=== PATIENT | female | born 1940 | race African-American/Black ===

== ENCOUNTER 2016-11-05 23:05 | Inpatient (IN) | payer MEDICARE ==
[~2016-11-05] VITALS: Ht 160 cm; Wt 50.8 kg
[~2016-11-05 23:05] MED LIST: AMIT25TA9 PO; CLON0.1T14 PO; LORA2TAB2 PO; PERP4TAB11 PO; TEMA30CA PO; [UNRECOGNIZED DRUG - CODE] PO
[2016-11-05] MEDS ORDERED: SODIUM CHLORIDE 0.9% 1,000 ML IV ONE (23:13)
[2016-11-05] MEDS ORDERED: ASPIRIN 81MG TABLET PO ONE (23:15)
[2016-11-05] MEDS ORDERED: ONDANSETRON HCL 4MG/2ML VIAL IV STA (23:17)
[2016-11-05 23:39] LABS: BASOPHILS % 0.7 % (0.0-2.0); EOSINOPHILS % 5.3 % (0.0-5.0); HEMATOCRIT. 36.1 % (36.0-48.0); HEMOGLOBIN. 12.2 g/dL (12.0-16.0); LYMPHOCYTES % 35.6 % (20.0-50.0); MEAN CORPUSCULAR HEMOGLOBIN 30.9 pg (28.0-32.0); MEAN CORPUSCULAR VOLUME 91.2 fL (81.0-99.0); MEAN PLATELET VOLUME 8.5 fl (7.4-10.4); MONOCYTES % 6.1 % (2.0-8.0); NEUTROPHILS % 52.3 % (40.0-76.0); PLATELET 327 x1000/uL (130-400); RED BLOOD CELL COUNT 3.96 mill/uL (4.2-5.4)
[2016-11-05 23:49] LABS: INR 1.1; PROTHROMBIN TIME 11.5 sec (9.4-11.6)
[2016-11-05 23:57] LABS: CARBON DIOXIDE 25 mEq/L (21-32); CHLORIDE 105 mEq/L (98-107); ETHANOL BLOOD < 10 mg/dL; T4 FREE 1.15 ng/dL (0.76-1.46); TROPONIN I < 0.02 ng/mL (0.00-0.04)
[2016-11-06] MEDS ORDERED: MORPHINE SULFATE 2 MG/ML CPJ (NOT FOR IM USE) IV ONE (00:30)
[2016-11-06] MEDS ORDERED: MORPHINE SULFATE 4 MG/ML CPJ (NOT FOR IM USE) IV SCH (01:47)
[2016-11-06] MEDS ORDERED: ONDANSETRON HCL 4MG/2ML VIAL IV PRN (03:30)
[2016-11-06 08:02] LABS: BASOPHILS % 0.9 % (0.0-2.0); EOSINOPHILS % 1.9 % (0.0-5.0); HEMATOCRIT. 35.9 % (36.0-48.0); HEMOGLOBIN. 12.2 g/dL (12.0-16.0); LYMPHOCYTES % 27.2 % (20.0-50.0); MEAN CORPUSCULAR HEMOGLOBIN 30.8 pg (28.0-32.0); MEAN CORPUSCULAR VOLUME 90.9 fL (81.0-99.0); MEAN PLATELET VOLUME 8.9 fl (7.4-10.4); MONOCYTES % 3.9 % (2.0-8.0); NEUTROPHILS % 66.1 % (40.0-76.0); PLATELET 318 x1000/uL (130-400); RED BLOOD CELL COUNT 3.95 mill/uL (4.2-5.4)
[2016-11-06 08:40] LABS: CHLORIDE 102 mEq/L (98-107)
[2016-11-06 08:55] LABS: AMYLASE 94 IU/L (25-115); CARBON DIOXIDE 24 mEq/L (21-32)
[2016-11-06] MEDS: CLONIDINE 0.1MG TABLET PO SCH ×2 (09:00→20:49)
[2016-11-06] MEDS: DEXT 5%/0.45% NACL KCL 20MEQ/L 1,000 ML IV SCH ×2 (10:01→20:50)
[2016-11-06] MEDS: FAMOTIDINE 20MG/2ML VIAL IV SCH (10:01)
[2016-11-06] MEDS: ENOXAPARIN 40MG/0.4ML SYR SUBCUT SCH (10:02)
[2016-11-06] MEDS: HYDROMORPHONE HCL/PF 2MG/ML CPJ IV PRN (14:44)
[2016-11-06] MEDS ORDERED: SODIUM CHLORIDE 0.9% 10ML VIAL ONE (14:50)
[2016-11-06] MEDS ORDERED: DIATR MEGLU/DIATRIZOATE SOLN 120ML ONE (14:50)
[2016-11-06] MEDS ORDERED: IOHEXOL-300 100 ML BOTTLE ONE (14:50)
[2016-11-07] MEDS: DEXT 5%/0.45% NACL KCL 20MEQ/L 1,000 ML IV SCH ×2 (01:00→04:58)
[2016-11-07 06:54] LABS: BASOPHILS % 0.7 % (0.0-2.0); EOSINOPHILS % 6.2 % (0.0-5.0); HEMATOCRIT. 33.1 % (36.0-48.0); HEMOGLOBIN. 11.2 g/dL (12.0-16.0); LYMPHOCYTES % 37.1 % (20.0-50.0); MEAN CORPUSCULAR HEMOGLOBIN 30.8 pg (28.0-32.0); MEAN PLATELET VOLUME 8.9 fl (7.4-10.4); MONOCYTES % 8.5 % (2.0-8.0); NEUTROPHILS % 47.5 % (40.0-76.0); PLATELET 252 x1000/uL (130-400); RED BLOOD CELL COUNT 3.63 mill/uL (4.2-5.4); RED CELL DISTRIBUTION WIDTH 14.3 % (11.6-14.6)
[2016-11-07 07:37] LABS: CHLORIDE 104 mEq/L (98-107)
[2016-11-07 08:05] LABS: CARBON DIOXIDE 25 mEq/L (21-32)
[2016-11-07] MEDS: FAMOTIDINE 20MG/2ML VIAL IV SCH (09:36)
[2016-11-07] MEDS: HYDROMORPHONE HCL/PF 2MG/ML CPJ IV PRN (09:38)
[2016-11-07] MEDS: ENOXAPARIN 40MG/0.4ML SYR SUBCUT SCH (09:39)
[2016-11-07] MEDS: CLONIDINE 0.1MG TABLET PO SCH (15:42)
[2016-11-07 16:00] VITALS: BP 185/86
== END 2016-11-07 16:30 | disposition home or self-care (01) | DRG 440 ==
LOC: ER 23:15 → 7WST 11-06 02:22 → ENRESERV 11-06 02:46
PROVIDERS: ADMIT Internal Medicine; ATTEND Internal Medicine
DX: K85.90 Acute pancreatitis without necrosis or infection, unspecified (principal); F03.90 Unspecified dementia, unspecified severity, without behavioral disturbance, psychotic disturbance, mood disturbance, and anxiety; E05.90 Thyrotoxicosis, unspecified without thyrotoxic crisis or storm; I10 Essential (primary) hypertension; E03.9 Hypothyroidism, unspecified; R07.9 Chest pain, unspecified; Z79.899 Other long term (current) drug therapy
CPT/HCPCS: 36415; 70450; 71010; 74177; 80048; 80053; 80061; 82150; 83690; 83880; 84439; 84443; 84484; 85025; 85610; 93005; 96361; 96374; 96375; 99285; A4216; G0482; J1170; J1650; J2270; J2405; J3490; J7030; Q9963; Q9967

== ENCOUNTER 2017-02-03 13:17 | Emergency (ER) | payer MEDICARE ==
[~2017-02-03] VITALS: Ht 154.9 cm; Wt 49.0 kg
[2017-02-03 14:54] LABS: INR 1.1; PROTHROMBIN TIME 11.2 sec (9.4-11.6)
[2017-02-03 15:00] LABS: BASOPHILS % 0.5 % (0.0-2.0); EOSINOPHILS % 3.7 % (0.0-5.0); HEMATOCRIT. 27.7 % (36.0-48.0); HEMOGLOBIN. 8.9 g/dL (12.0-16.0); LYMPHOCYTES % 21.8 % (20.0-50.0); MEAN CORPUSCULAR HEMOGLOBIN 26.8 pg (28.0-32.0); MEAN CORPUSCULAR VOLUME 83.1 fL (81.0-99.0); MEAN PLATELET VOLUME 8.3 fl (7.4-10.4); MONOCYTES % 6.3 % (2.0-8.0); NEUTROPHILS % 67.7 % (40.0-76.0); PLATELET 373 x1000/uL (130-400); RED BLOOD CELL COUNT 3.33 mill/uL (4.2-5.4); RED CELL DISTRIBUTION WIDTH 17.6 % (11.6-14.6)
[2017-02-03 15:05] LABS: CARBON DIOXIDE 30 mEq/L (21-32); CHLORIDE 103 mEq/L (98-107); TROPONIN I < 0.02 ng/mL (0.00-0.04)
[2017-02-03] MEDS ORDERED: POTASSIUM CHLORIDE 20MEQ TABLET SR PO ONE (15:30)
[2017-02-03 17:45] VITALS: BP 148/82
[2017-02-03 17:46] LABS: CLARITY URINE CLEAR (CLEAR); COLOR URINE YELLOW (YELLOW); GLUCOSE URINE NEGATIVE (NEGATIVE); KETONES URINE NEGATIVE (NEGATIVE); LEUKOCYTE ESTERASE URINE NEGATIVE (NEGATIVE); NITRITE URINE NEGATIVE (NEGATIVE); OCCULT BLOOD URINE NEGATIVE (NEGATIVE); PH URINE 7.5 (4.5-8.0); PROTEIN URINE NEGATIVE (NEGATIVE); SPECIFIC GRAVITY URINE 1.005 (1.005-1.030); UROBILINOGEN URINE 0.2 E.U./dL (0.2-1.0)
== END 2017-02-03 18:14 | disposition home or self-care (01) ==
LOC: ER 13:49 → CANBEDREQ 18:19
DX: D64.9 Anemia, unspecified (principal); E87.6 Hypokalemia; E05.90 Thyrotoxicosis, unspecified without thyrotoxic crisis or storm; F03.90 Unspecified dementia, unspecified severity, without behavioral disturbance, psychotic disturbance, mood disturbance, and anxiety; I10 Essential (primary) hypertension
CPT/HCPCS: 36415; 71010; 80053; 81003; 83880; 84484; 85025; 85610; 93005; 99285

== ENCOUNTER 2018-02-12 04:47 | Inpatient (IN) | payer MEDICARE ==
[~2018-02-12] VITALS: Ht 154.9 cm; Wt 41.8 kg
[2018-02-12 06:19] LABS: BASOPHILS % 0.3 % (0.0-2.0); EOSINOPHILS % 3.9 % (0.0-5.0); HEMATOCRIT. 34.9 % (36.0-48.0); HEMOGLOBIN. 11.4 g/dL (12.0-16.0); LYMPHOCYTES % 20.3 % (20.0-50.0); MEAN CORPUSCULAR HEMOGLOBIN 29.9 pg (28.0-32.0); MEAN CORPUSCULAR VOLUME 91.5 fL (81.0-99.0); MEAN PLATELET VOLUME 8.5 fl (7.4-10.4); MONOCYTES % 6.4 % (2.0-8.0); NEUTROPHILS % 69.1 % (40.0-76.0); PLATELET 261 x1000/uL (130-400); RED BLOOD CELL COUNT 3.82 mill/uL (4.2-5.4); RED CELL DISTRIBUTION WIDTH 14.6 % (11.6-14.6)
[2018-02-12 06:25] LABS: CHLORIDE 104 mEq/L (98-107)
[2018-02-12] MEDS ORDERED: NITROGLYCERIN 50MG PREMIX 250 ML IV ONE (06:30)
[2018-02-12] MEDS ORDERED: NITROGLYCERIN 0.4MG TABLET SL SL ONE ×2 (06:30→08:30)
[2018-02-12] MEDS ORDERED: FUROSEMIDE 40MG/4ML VIAL IVP ONE (06:30)
[2018-02-12] MEDS ORDERED: NITROGLYCERIN OINT 1GM/INCH UDPKT TD ONE (06:45)
[2018-02-12] MEDS ORDERED: IOHEXOL-350 100 ML BOTTLE ONE (08:30)
[2018-02-12] MEDS ORDERED: ACETAMINOPHEN 500MG TABLET PO ONE (10:00)
[2018-02-12] MEDS ORDERED: LORAZEPAM 2MG/ML CPJ IV ONE ×2 (10:30→11:15)
[2018-02-12] MEDS ORDERED: CLONIDINE 0.1MG TABLET PO NR (20:30)
[2018-02-12] MEDS ORDERED: CLONIDINE 0.2MG TABLET PO PRN (22:15)
[2018-02-12] MEDS ORDERED: ONDANSETRON HCL 4MG/2ML INJ IV PRN (22:15)
[2018-02-12] MEDS ORDERED: ACETAMINOPHEN 325MG TABLET PO PRN (22:15)
[2018-02-12] MEDS ORDERED: DOCUSATE SODIUM 100MG CAPSULE PO PRN (22:15)
[2018-02-12] MEDS: HYDROCODONE/ACETAMINOPHEN 5/325MG TABLET PO PRN (22:29)
[2018-02-13 05:24] LABS: BASOPHILS % 0.8 % (0.0-2.0); EOSINOPHILS % 4.6 % (0.0-5.0); HEMATOCRIT. 38.3 % (36.0-48.0); HEMOGLOBIN. 12.9 g/dL (12.0-16.0); LYMPHOCYTES % 35.8 % (20.0-50.0); MEAN CORPUSCULAR HEMOGLOBIN 30.5 pg (28.0-32.0); MEAN PLATELET VOLUME 8.6 fl (7.4-10.4); MONOCYTES % 7.6 % (2.0-8.0); NEUTROPHILS % 51.2 % (40.0-76.0); PLATELET 328 x1000/uL (130-400); RED BLOOD CELL COUNT 4.21 mill/uL (4.2-5.4); RED CELL DISTRIBUTION WIDTH 14.8 % (11.6-14.6)
[2018-02-13 05:34] LABS: CHLORIDE 101 mEq/L (98-107)
[2018-02-13 05:45] LABS: CREATINE KINASE 73 IU/L (26-192); LDL CHOLESTEROL 89 mg/dL (5-100); T4 FREE 1.76 ng/dL (0.76-1.46)
[2018-02-13 05:46] LABS: HDL CHOLESTEROL 74 mg/dL (40-59)
[2018-02-13] MEDS: HYDROCODONE/ACETAMINOPHEN 5/325MG TABLET PO PRN ×4 (05:55→23:33)
[2018-02-13 11:00] VITALS: BP 137/91
[2018-02-13] MEDS: ASPIRIN 81MG EC TABLET PO SCH (11:21)
[2018-02-13] MEDS: AMLODIPINE 10MG TABLET PO SCH (11:22)
[2018-02-13] MEDS: PANTOPRAZOLE 40MG DR TABLET PO SCH (11:23)
[2018-02-13] MEDS ORDERED: INFLUENZA VACCINE IM ONE (16:00)
[2018-02-13] MEDS ORDERED: PNEUMOCOCCAL VACCINE IM ONE (16:00)
[2018-02-13] MEDS ORDERED: NITROGLYCERIN 0.4MG TABLET SL SL PRN (17:07)
[2018-02-13] MEDS: METOPROLOL TARTRATE 25MG TABLET PO SCH (18:15)
[2018-02-13 20:00] VITALS: BP 148/82
[2018-02-14] MEDS ORDERED: LORAZEPAM 1MG TABLET PO PRN
[2018-02-14 00:20] VITALS: BP 145/85
[2018-02-14] MEDS: HYDROCODONE/ACETAMINOPHEN 5/325MG TABLET PO PRN ×2 (04:03→10:03)
[2018-02-14 04:04] VITALS: BP 136/80
[2018-02-14] MEDS: PANTOPRAZOLE 40MG DR TABLET PO SCH (05:51)
[2018-02-14 07:16] LABS: CHLORIDE 105 mEq/L (98-107)
[2018-02-14 07:36] LABS: T4 FREE 1.69 ng/dL (0.76-1.46)
[2018-02-14 08:00] VITALS: BP 123/59
[2018-02-14] MEDS: ASPIRIN 81MG EC TABLET PO SCH (09:52)
[2018-02-14] MEDS: METOPROLOL TARTRATE 25MG TABLET PO SCH (09:53)
[2018-02-14] MEDS: AMLODIPINE 10MG TABLET PO SCH (09:53)
[2018-02-14] MEDS ORDERED: ENOXAPARIN 40MG/0.4ML SYR SUBCUT SCH (10:00)
[2018-02-14 12:00] VITALS: BP 149/92
[2018-02-14 16:00] VITALS: BP 133/79
[2018-02-14 17:09] VITALS: BP 133/69
[2018-02-15] MEDS ORDERED: ENOXAPARIN 30MG/0.3ML SYR SUBCUT SCH (10:00)
== END 2018-02-14 18:00 | disposition home or self-care (01) | DRG 643 ==
LOC: ER 04:47 → EDBEDREQ 07:20 → ENRESERV 02-13 09:06 → 5WST 02-13 10:35
PROVIDERS: ADMIT Internal Medicine; ATTEND Internal Medicine
DX: E05.90 Thyrotoxicosis, unspecified without thyrotoxic crisis or storm (principal); I50.43 Acute on chronic combined systolic (congestive) and diastolic (congestive) heart failure; I47.1 Supraventricular tachycardia; E78.5 Hyperlipidemia, unspecified; J44.9 Chronic obstructive pulmonary disease, unspecified; F03.90 Unspecified dementia, unspecified severity, without behavioral disturbance, psychotic disturbance, mood disturbance, and anxiety; F17.210 Nicotine dependence, cigarettes, uncomplicated; I11.0 Hypertensive heart disease with heart failure; I25.10 Atherosclerotic heart disease of native coronary artery without angina pectoris; I25.2 Old myocardial infarction; Z95.5 Presence of coronary angioplasty implant and graft
CPT/HCPCS: 36415; 71045; 71275; 80048; 80061; 82550; 83880; 84439; 84443; 84484; 85379; 93005; 96374; 96375; 99285; J1650; J1940; J2060; J3490; Q9967

== ENCOUNTER 2018-08-24 19:34 | Emergency (ER) | payer MEDICARE ==
[~2018-08-24] VITALS: Ht 154.9 cm; Wt 45.0 kg
[~2018-08-24 19:34] MED LIST changes: -CLON0.1T14 PO; -PERP4TAB11 PO
[2018-08-24] MEDS ORDERED: KETOROLAC 15MG/ML VIAL IV ONE (22:30)
[2018-08-24] MEDS ORDERED: MORPHINE SULFATE 4 MG/ML CPJ (NOT FOR IM USE) IV ONE (22:30)
[2018-08-24] MEDS ORDERED: CLONIDINE 0.2MG TABLET PO ONE (23:45)
[2018-08-25 00:14] VITALS: BP 160/72
== END 2018-08-25 00:19 | disposition home or self-care (01) ==
LOC: ER 19:34
DX: M79.642 Pain in left hand (principal); M79.641 Pain in right hand; I10 Essential (primary) hypertension; F17.290 Nicotine dependence, other tobacco product, uncomplicated; Z98.890 Other specified postprocedural states
CPT/HCPCS: 96374; 96375; 99283; 99406; J1885; J2270

== ENCOUNTER 2018-09-10 12:16 | Emergency (ER) | payer MEDICARE ==
[~2018-09-10] VITALS: Ht 160 cm; Wt 45.0 kg
[2018-09-10] MEDS ORDERED: ONDANSETRON HCL 4MG/2ML INJ IV STA (14:27)
[2018-09-10] MEDS ORDERED: MORPHINE SULFATE 4 MG/ML CPJ (NOT FOR IM USE) IV STA (14:27)
[2018-09-10] MEDS ORDERED: ACETAMINOPHEN 325MG TABLET PO STA (14:27)
[2018-09-10] MEDS ORDERED: SODIUM CHLORIDE 0.9% 1000ML BAG (SEPSIS BOLUS) IV ONE (14:30)
[2018-09-10 15:56] LABS: CLARITY URINE CLEAR (CLEAR); COLOR URINE YELLOW (YELLOW); KETONES URINE NEGATIVE (NEGATIVE); LEUKOCYTE ESTERASE URINE NEGATIVE (NEGATIVE); NITRITE URINE NEGATIVE (NEGATIVE); OCCULT BLOOD URINE NEGATIVE (NEGATIVE); PH URINE 7.5 (4.5-8.0); PROTEIN URINE NEGATIVE (NEGATIVE); SPECIFIC GRAVITY URINE 1.003 (1.005-1.030)
[2018-09-10 16:09] LABS: BASOPHILS % 0.3 % (0.0-2.0); EOSINOPHILS % 0.9 % (0.0-5.0); HEMATOCRIT. 34.9 % (36.0-48.0); HEMOGLOBIN. 11.2 g/dL (12.0-16.0); LYMPHOCYTES % 10.5 % (20.0-50.0); MEAN CORPUSCULAR HEMOGLOBIN 28.3 pg (28.0-32.0); MEAN CORPUSCULAR VOLUME 87.7 fL (81.0-99.0); MONOCYTES % 5.3 % (2.0-8.0); RED BLOOD CELL COUNT 3.98 mill/uL (4.2-5.4); RED CELL DISTRIBUTION WIDTH 14.6 % (11.6-14.6)
[2018-09-10 16:14] LABS: CHLORIDE 104 mEq/L (98-107); INR 1.1; PROTHROMBIN TIME 11.3 sec (9.6-11.0)
[2018-09-10 16:25] LABS: PLATELET 554 x1000/uL (130-400)
[2018-09-10 18:00] VITALS: BP 117/79
== END 2018-09-10 18:03 | disposition home or self-care (01) ==
LOC: ER 12:53 → CANBEDREQ 16:39 → ER 18:03
DX: M25.512 Pain in left shoulder (principal); M19.90 Unspecified osteoarthritis, unspecified site; R50.9 Fever, unspecified; I10 Essential (primary) hypertension; E05.90 Thyrotoxicosis, unspecified without thyrotoxic crisis or storm; Z98.890 Other specified postprocedural states; Z79.899 Other long term (current) drug therapy; W19.XXXA Unspecified fall, initial encounter; Y93.89 Activity, other specified; Y92.89 Other specified places as the place of occurrence of the external cause; Y99.8 Other external cause status
CPT/HCPCS: 36415; 71045; 73030; 80053; 81003; 83605; 84484; 85025; 85610; 87040; 87086; 87804; 93005; 96374; 96375; 99284; J2270; J2405; J7030

== ENCOUNTER 2019-11-02 08:25 | Inpatient (IN) | payer MEDICARE ==
[~2019-11-02] VITALS: Ht 170.2 cm; Wt 54.0 kg
[2019-11-02 10:23] LABS: HEMATOCRIT. 33.6 % (36.0-48.0); HEMOGLOBIN. 11.2 g/dL (12.0-16.0); MEAN CORPUSCULAR HEMOGLOBIN 31.2 pg (28.0-32.0); MEAN CORPUSCULAR VOLUME 93.9 fL (81.0-99.0); PLATELET 351 x1000/uL (130-400); RED BLOOD CELL COUNT 3.58 mill/uL (4.2-5.4); RED CELL DISTRIBUTION WIDTH 15.2 % (11.6-14.6)
[2019-11-02 10:28] LABS: CHLORIDE 98 mEq/L (98-107)
[2019-11-02 10:42] LABS: PLATELET ESTIMATE NORMAL
[2019-11-02] MEDS ORDERED: CLONIDINE 0.2MG TABLET PO ONE (12:00)
[2019-11-02] MEDS ORDERED: CEFTRIAXONE 1 G PREMIX 50 ML IV SCH (15:00)
[2019-11-02] MEDS ORDERED: ONDANSETRON HCL 4MG/2ML INJ IV PRN (15:00)
[2019-11-02] MEDS ORDERED: ACETAMINOPHEN 325MG TABLET PO PRN (15:00)
[2019-11-02] MEDS ORDERED: POTASSIUM CHLORIDE 20MEQ TABLET SR PO NR (15:00)
[2019-11-02] MEDS: FUROSEMIDE 40MG/4ML VIAL IVP SCH (15:23)
[2019-11-02] MEDS ORDERED: AZITHROMYCIN 500 MG in DEXT 5% WATER 250 ML IV SCH (15:30)
[2019-11-02] MEDS: ENOXAPARIN 40MG/0.4ML SYR SUBCUT SCH (15:41)
[2019-11-02] MEDS: HYDROCODONE/ACETAMINOPHEN 5/325MG TABLET PO PRN (19:47)
[2019-11-02] MEDS ORDERED: FAMOTIDINE 20MG TABLET PO SCH (21:00)
[2019-11-03] MEDS: HYDROCODONE/ACETAMINOPHEN 5/325MG TABLET PO PRN ×4 (00:23→20:20)
[2019-11-03 05:00] LABS: BASOPHILS % 0.5 % (0.0-2.0); HEMOGLOBIN. 11.6 g/dL (12.0-16.0); LYMPHOCYTES % 10.9 % (20.0-50.0); MEAN CORPUSCULAR HEMOGLOBIN 31.7 pg (28.0-32.0); MEAN CORPUSCULAR VOLUME 93.2 fL (81.0-99.0); MONOCYTES % 7.9 % (2.0-8.0); NEUTROPHILS % 76.7 % (40.0-76.0); PLATELET 345 x1000/uL (130-400); RED BLOOD CELL COUNT 3.64 mill/uL (4.2-5.4); RED CELL DISTRIBUTION WIDTH 15.8 % (11.6-14.6)
[2019-11-03 05:07] LABS: CHLORIDE 97 mEq/L (98-107)
[2019-11-03 05:17] LABS: CREATINE KINASE 184 IU/L (26-192)
[2019-11-03 05:18] LABS: CREATINE KINASE MB FRACTION 11.4 ng/mL (0.5-3.6)
[2019-11-03] MEDS: FUROSEMIDE 40MG/4ML VIAL IVP SCH (10:22)
[2019-11-03 10:30] VITALS: BP_SYST 178
[2019-11-03] MEDS ORDERED: ZOLP10TA2 MT (12:57)
[2019-11-03] MEDS ORDERED: PNEUMOCOCCAL VACCINE IM ONE (13:00)
[2019-11-03] MEDS ORDERED: LORAZEPAM 0.5MG TABLET PO PRN (13:45)
[2019-11-03] MEDS ORDERED: LACTULOSE 20G/30ML UDC PO PRN (13:45)
[2019-11-03] MEDS ORDERED: IPRATROPIUM/ALBUTEROL 0.5-3(2.5)MG/3ML NEB HHN PRN (13:45)
[2019-11-03] MEDS ORDERED: DIPHENHYDRAMINE 50MG/ML VIAL IV PRN (13:45)
[2019-11-03 14:33] LABS: BG BASE EXCESS 2.8 mmol/L (-2.0-2.0); BG CARBOXYHEMOGLOBIN 0.7 % (0.5-1.5); BG DEOXYHEMOGLOBIN 7.4 % (0.0-5.0); BG FRACTION INSPIRED OXYGEN 21; BG HCO3 ACT 27.2 mmol/L (22.0-26.0); BG METHEMOGLOBIN 0.3 % (0.0-1.5); BG OXYGEN SATURATION 92.5 % (92.0-98.5); BG OXYHEMOGLOBIN 91.6 % (94.0-97.0); BG PCO2 41.4 mmHg (35.0-45.0); BG PH 7.436 (7.350-7.450); BG PO2 62.9 mmHg (75.0-100.0); BG SAMPLE SITE RIGHT BRACHIAL; BG TOTAL HEMOGLOBIN 12.6 g/dL (12.0-18.0); BG VENT MODE ROOM AIR
[2019-11-03] MEDS ORDERED: AZITHROMYCIN 500 MG in DEXT 5% WATER 250 ML IV SCH (15:00)
[2019-11-03] MEDS ORDERED: CEFTRIAXONE 1,000 MG in DEXTROSE 5% WATER 50 ML IV SCH (15:00)
[2019-11-03] MEDS: ENOXAPARIN 40MG/0.4ML SYR SUBCUT SCH (15:14)
[2019-11-03 16:00] VITALS: BP 122/64
[2019-11-03 19:33] VITALS: BP 119/63
[2019-11-03 20:37] VITALS: BP 119/63
[2019-11-03] MEDS ORDERED: FAMOTIDINE 20MG TABLET PO SCH (21:00)
[2019-11-03 21:01] LABS: CLARITY URINE CLEAR (CLEAR); KETONES URINE NEGATIVE (NEGATIVE); LEUKOCYTE ESTERASE URINE NEGATIVE (NEGATIVE); NITRITE URINE NEGATIVE (NEGATIVE); OCCULT BLOOD URINE 3+ (NEGATIVE); PROTEIN URINE TRACE (NEGATIVE); SPECIFIC GRAVITY URINE 1.006 (1.005-1.030); UROBILINOGEN URINE 0.2 E.U./dL (0.2-1.0)
[2019-11-03 21:02] LABS: COLOR URINE PALE YELLOW (YELLOW)
== END 2019-11-03 21:47 | disposition home or self-care (01) | DRG 186 ==
LOC: ER 08:31 → MICUSO 12:03 → EDBEDREQTM 12:08 → EDBEDREQ 12:08 → ENRESERV 20:11 → CANRESERV 20:11 → 7WST 11-03 05:26 → 6WST 11-03 16:23
PROVIDERS: ADMIT Internal Medicine; ATTEND Internal Medicine
PROC: 0W993ZX Drainage of Right Pleural Cavity, Percutaneous Approach, Diagnostic (ICD-10-PCS; principal; 2019-11-02)
DX: J90 Pleural effusion, not elsewhere classified (principal); J96.01 Acute respiratory failure with hypoxia; E87.1 Hypo-osmolality and hyponatremia; E87.70 Fluid overload, unspecified; D64.9 Anemia, unspecified; E03.9 Hypothyroidism, unspecified; F41.9 Anxiety disorder, unspecified; E87.6 Hypokalemia; I10 Essential (primary) hypertension; M19.90 Unspecified osteoarthritis, unspecified site; Z20.828 Contact with and (suspected) exposure to other viral communicable diseases; R09.02 Hypoxemia; E05.90 Thyrotoxicosis, unspecified without thyrotoxic crisis or storm; Z79.899 Other long term (current) drug therapy
CPT/HCPCS: 36415; 36600; 71045; 80048; 80053; 81003; 82040; 82375; 82550; 82553; 82805; 83615; 83880; 84478; 84484; 85025; 87635; 88305; 89060; 93005; 99285; J0456; J0696; J1650; J1940; J2405; J7060